=== PATIENT | female | born 1965 | race Caucasian/White ===

== ENCOUNTER 2018-08-02 09:38 | Emergency (ER) | payer OTHER ==
[~2018-08-02] VITALS: Ht 165.1 cm; Wt 81.0 kg
[2018-08-02 10:37] LABS: BASOPHILS # (AUTO) 0.04 x10^3/uL (0-0.1); BASOPHILS % (AUTO) 0 % (0-1); EOSINOPHILS # (AUTO) 0.17 x10^3/uL (0-0.4); EOSINOPHILS % (AUTO) 2 % (1-7); LYMPHOCYTES # (AUTO) 1.57 x10^3/uL (1-3.4); LYMPHOCYTES % (AUTO) 17 % (22-44); MD NO; MEAN PLATELET VOLUME 8.9 fL (7.4-10.4); MONOCYTES # (AUTO) 0.53 x10^3/uL (0.2-0.8); MONOCYTES % (AUTO) 6 % (2-9); NEUTROPHILS # (AUTO) 7.13 x10^3/uL (1.8-6.8); NEUTROPHILS % (AUTO) 76 % (42-75); PLATELET COUNT 370 x10^3/uL (130-400); RED BLOOD COUNT 4.86 x10^6/uL (3.82-5.3); RED CELL DISTRIBUTION WIDTH 14.3 % (9.6-15.2)
[2018-08-02 10:47] LABS: ALANINE AMINOTRANSFERASE 26 U/L (12-78); ALBUMIN 3.7 g/dL (3.4-5.0); ANION GAP 4 mmol/L (5-15); CALCIUM 9.2 mg/dL (8.5-10.1); CHLORIDE 108 mmol/L (98-107); CREATININE 1.01 mg/dL (0.55-1.02)
--- NOTE | 2018-08-02 10:47 | NUR ---
THIS IS A 52 YO FEMALE WHO PRESENTS TO THE ER C/O RIGHT SIDED UPPER TRUNK PAIN X 3 DAYS. PT REPORTS PAIN IS WORSE WITH DEEP BREATHS AND MOVEMENTS AND DESCRIBES IT "SHOOTING" AND DULL WHEN AT REST. PT RATES PAIN AT 4/10 AT THIS TIME. PT CURRENTLY REFUSES OFFER OF PAIN MEDICATION. PT AO X 4. SKIN PWD. RESP EVEN AND EQAUL. PT AWARE WE ARE WAITING FOR LAB/IMAGING RESULTS. FRIEND AT BEDSIDE. CALL LIGHT WITHIN REACH. WILL CONT TO MONITOR PT.
[2018-08-02 10:50] LABS: ALKALINE PHOSPHATASE 114 U/L (45-117); BILIRUBIN,TOTAL 0.6 mg/dL (0.2-1.0)
--- NOTE | 2018-08-02 11:45 | NUR ---
PT WAS SITTING IN CHAIR WITH CLOTHES RN. RN DISCUSSED THAT ERMD HAD ALSO ORDERED A CT SCAN. PT CHANGED BACK INTO GOWN AND NOW RESTING ON GURNEY. NAD NOTED. SKIN PWD. RESP EVEN AND EQAUL. PT PROVIDED WITH SOCKS, DENIES PAIN/NEEDS AT THIS TIME. FRIEND AT BEDSIDE. CALL LIGHT WITHIN REACH. WILL CONT TO MONITOR PT.
[2018-08-02 12:11] VITALS: BP 132/83
== END 2018-08-02 12:50 | disposition home or self-care (01) ==
LOC: ED 11:28
DX: S29.011A Strain of muscle and tendon of front wall of thorax, initial encounter (principal); G89.29 Other chronic pain; X58.XXXA Exposure to other specified factors, initial encounter; Y93.89 Activity, other specified; Y92.89 Other specified places as the place of occurrence of the external cause; Y99.8 Other external cause status
CPT/HCPCS: 36415; 71046; 74176; 76700; 80053; 83690; 85025; 99284

== ENCOUNTER 2018-10-16 21:38 | Inpatient (IN) | payer OTHER ==
[~2018-10-16] VITALS: Ht 165.1 cm; Wt 81.3 kg
--- NOTE | 2018-10-16 22:03 | NUR ---
PT DIAGNOSED WITH HEART FAILURE 4 WEEKS AGO. BEEN HAVING NAUSEA WITH DRY HEAVES FOR PAST 2 DAYS. TODAY NOTICED SWELLING TO BILATERAL LOWER EXTREMITIES. STATES "SHE JUST FEELS CRAPPY." PA AT [facility]. VSS. UPDATED ON POC
[2018-10-16] MEDS ORDERED: ASPIRIN 81 MG TABLET CHEW ONE (22:19)
[2018-10-16] MEDS ORDERED: ONDANSETRON 2MG/ML, 2ML ONE (22:19)
[2018-10-16] MEDS ORDERED: SODIUM CHLORIDE FLUSH 10ML SYR IVF ONE (22:30)
[2018-10-16] MEDS ORDERED: ASPIRIN 81 MG TABLET CHEW PO ONE (22:30)
[2018-10-16] MEDS ORDERED: ONDANSETRON 2MG/ML, 2ML IVPush ONE (22:30)
[2018-10-16 22:51] LABS: BASOPHILS # (AUTO) 0.05 x10^3/uL (0-0.1); BASOPHILS % (AUTO) 1 % (0-1); EOSINOPHILS # (AUTO) 0.05 x10^3/uL (0-0.4); EOSINOPHILS % (AUTO) 0 % (1-7); LYMPHOCYTES # (AUTO) 1.19 x10^3/uL (1-3.4); LYMPHOCYTES % (AUTO) 11 % (22-44); MD NO; MEAN CORPUSCULAR HEMOGLOBIN 28.6 pg (27.0-34.8); MEAN CORPUSCULAR HGB CONC 33.4 g/dL (32.4-35.8); MEAN CORPUSCULAR VOLUME 85.6 fL (80-100); MEAN PLATELET VOLUME 9.1 fL (7.4-10.4); MONOCYTES # (AUTO) 1.14 x10^3/uL (0.2-0.8); MONOCYTES % (AUTO) 10 % (2-9); NEUTROPHILS # (AUTO) 8.92 x10^3/uL (1.8-6.8); NEUTROPHILS % (AUTO) 79 % (42-75); PLATELET COUNT 320 x10^3/uL (130-400); RED BLOOD COUNT 4.28 x10^6/uL (3.82-5.3); RED CELL DISTRIBUTION WIDTH 14.5 % (9.6-15.2)
[2018-10-16 23:01] LABS: ALBUMIN 3.9 g/dL (3.4-5.0); ANION GAP 9 mmol/L (5-15); CALCIUM 9.1 mg/dL (8.5-10.1); CHLORIDE 106 mmol/L (98-107)
[2018-10-16 23:06] LABS: ALANINE AMINOTRANSFERASE 49 U/L (12-78); ALKALINE PHOSPHATASE 154 U/L (45-117); BILIRUBIN,TOTAL 2.1 mg/dL (0.2-1.0); CREATININE 1.38 mg/dL (0.55-1.02); TOTAL PROTEIN 7.7 g/dL (6.4-8.2)
[2018-10-16] MEDS ORDERED: OMNIPAQUE 350 MG/ML, 100ML BOTTLE ONE (23:45)
[2018-10-17] MEDS ORDERED: FUROSEMIDE 40 MG/4 ML ONE (00:27)
[2018-10-17] MEDS ORDERED: FUROSEMIDE 40 MG/4 ML IV ONE (00:30)
[2018-10-17 01:30] VITALS: BP 101/70
[2018-10-17] MEDS ORDERED: morphine SULFATE 10 MG/ML, 1ML IVPush PRN (01:30)
[2018-10-17] MEDS ORDERED: ACETAMINOPHEN 325 MG TABLET PO PRN (01:30)
[2018-10-17] MEDS ORDERED: hydrALAzine 20 MG/ML, 1ML IVPush PRN (01:30)
[2018-10-17] MEDS ORDERED: PROMETHAZINE 25 MG/ML, 1ML IM PRN (01:30)
[2018-10-17] MEDS ORDERED: NITROGLYCERIN 0.4 MG BOTTLE (25 TABS) SL PRN (01:30)
[2018-10-17 02:42] LABS: ALBUMIN 3.8 g/dL (3.4-5.0); ANION GAP 8 mmol/L (5-15); CALCIUM 8.8 mg/dL (8.5-10.1); CHLORIDE 105 mmol/L (98-107)
[2018-10-17 02:46] LABS: ALANINE AMINOTRANSFERASE 50 U/L (12-78); ALKALINE PHOSPHATASE 150 U/L (45-117); CREATININE 1.28 mg/dL (0.55-1.02); TOTAL PROTEIN 7.6 g/dL (6.4-8.2)
[2018-10-17 02:56] LABS: AMPHETAMINE SCREEN, URINE Positive (Negative); BARBITURATE SCREEN, URINE Negative (Negative); BENZODIAZEPINE SCREEN, URINE Negative (Negative); CANNABINOID SCREEN, URINE Negative (Negative); COCAINE SCREEN, URINE Negative (Negative); METHADONE SCREEN, URINE Negative (Negative); OPIATE SCREEN, URINE Negative (Negative)
[2018-10-17] MEDS: HEPARIN 5,000 UNITS/ML, 1ML SQ SCH ×3 (03:12→21:37)
[2018-10-17] MEDS ORDERED: ASPIRIN 325 MG TABLET EC PO SCH (06:00)
[2018-10-17] MEDS ORDERED: ASPIRIN 81 MG TABLET CHEW ONE (06:41)
[2018-10-17 07:00] VITALS: BP 105/77
[2018-10-17] MEDS ORDERED: ASPIRIN 81 MG TABLET CHEW PO ONE (07:00)
[2018-10-17] MEDS: FUROSEMIDE 40 MG/4 ML IV SCH ×2 (07:51→17:31)
[2018-10-17 10:02] LABS: TROPONIN I 0.148 ng/mL (0.000-0.045)
[2018-10-17 13:19] VITALS: BP 109/79
[2018-10-17 17:30] VITALS: BP 109/74
[2018-10-17 20:10] VITALS: BP 109/68
[2018-10-18 02:11] VITALS: BP 101/70
[2018-10-18] MEDS: ASPIRIN 81 MG TABLET EC PO SCH (05:03)
[2018-10-18] MEDS: HEPARIN 5,000 UNITS/ML, 1ML SQ SCH ×3 (05:03→20:51)
[2018-10-18 06:28] LABS: ANION GAP 7 mmol/L (5-15); CALCIUM 8.6 mg/dL (8.5-10.1); CHLORIDE 100 mmol/L (98-107); CHOLESTEROL, TOTAL 129 mg/dL (140-239); CREATININE 0.97 mg/dL (0.55-1.02); TRIGLYCERIDES 100 mg/dL (50-200); VLDL CHOLESTEROL 20 mg/dL (0-25)
[2018-10-18 06:32] LABS: CHOL/HDL RATIO 5.6; HDL CHOL % 18 % (28-40); HDL CHOLESTEROL (DIRECT) 23 mg/dL (40-60); LDL CHOLESTEROL,CALCULATED 86 mg/dL (54-169); LDL/HDL RATIO 3.7 (0.5-3.0); TROPONIN I 0.187 ng/mL (0.000-0.045)
[2018-10-18 08:18] VITALS: BP 115/79
[2018-10-18] MEDS: FUROSEMIDE 40 MG/4 ML IV SCH ×2 (08:47→17:00)
[2018-10-18] MEDS ORDERED: POTASSIUM CHLORIDE 20 MEQ TAB.ER.PRT PO ONE (11:30)
[2018-10-18] MEDS ORDERED: LISI5TAB7 PO (11:35)
[2018-10-18] MEDS ORDERED: CARV3.122 PO (11:35)
[2018-10-18] MEDS ORDERED: POTA20TA6 PO (11:35)
[2018-10-18] MEDS ORDERED: ASPI81TA45 PO (11:35)
[2018-10-18] MEDS ORDERED: FURO40TA6 PO (11:35)
[2018-10-18 13:54] VITALS: BP 130/87
[2018-10-18 20:55] VITALS: BP 105/74
[2018-10-19 02:06] VITALS: BP 117/78
[2018-10-19] MEDS: HEPARIN 5,000 UNITS/ML, 1ML SQ SCH (06:26)
[2018-10-19] MEDS: ASPIRIN 81 MG TABLET EC PO SCH (06:26)
[2018-10-19] MEDS: FUROSEMIDE 40 MG/4 ML IV SCH (06:29)
[2018-10-19 07:15] VITALS: BP 125/86
== END 2018-10-19 12:12 | disposition left against medical advice (07) | DRG 280 ==
LOC: ED 22:05 → EDIP 10-17 00:19 → 5SO 10-17 02:02
PROVIDERS: ADMIT Family Medicine; ATTEND Family Medicine
DX: I21.4 Non-ST elevation (NSTEMI) myocardial infarction (principal); I50.43 Acute on chronic combined systolic (congestive) and diastolic (congestive) heart failure; F17.210 Nicotine dependence, cigarettes, uncomplicated; G89.29 Other chronic pain; I34.0 Nonrheumatic mitral (valve) insufficiency; M32.9 Systemic lupus erythematosus, unspecified; M51.36 Other intervertebral disc degeneration, lumbar region; Z53.21 Procedure and treatment not carried out due to patient leaving prior to being seen by health care provider; Z71.6 Tobacco abuse counseling
CPT/HCPCS: 36415; 71046; 71275; 76700; 80048; 80053; 80061; 80307; 83690; 83735; 83880; 84100; 84443; 84484; 85025; 93005; 93306; 96374; 99285; G0378; J1644; J1940; J2405; Q9967

== ENCOUNTER 2018-10-21 11:51 | Observation (INO) | payer OTHER ==
[~2018-10-21] VITALS: Ht 162.6 cm; Wt 79.8 kg
[~2018-10-21 11:51] MED LIST: ASPI81TA45 PO; CARV3.122 PO; FURO40TA6 PO; LISI5TAB7 PO; POTA20TA6 PO
[2018-10-21 12:49] LABS: INTERNATIONAL NORMALIZED RATIO 0.99 (0.93-1.1); PROTHROMBIN TIME 10.4 Seconds (9.6-11.5)
[2018-10-21 12:51] LABS: ALANINE AMINOTRANSFERASE 30 U/L (12-78); ALBUMIN 3.2 g/dL (3.4-5.0); ANION GAP 7 mmol/L (5-15); CALCIUM 8.9 mg/dL (8.5-10.1); CHLORIDE 103 mmol/L (98-107)
[2018-10-21 12:55] LABS: ALKALINE PHOSPHATASE 121 U/L (45-117); BILIRUBIN,TOTAL 0.7 mg/dL (0.2-1.0); TOTAL PROTEIN 7.4 g/dL (6.4-8.2); TROPONIN I 0.083 ng/mL (0.000-0.045)
--- NOTE | 2018-10-21 12:57 | NUR ---
RECEIVED REPORT FROM LAWANDA SHERIDAN. PT RESTING ON [place]. NADN. LOPEZ.
[2018-10-21 13:08] LABS: BASOPHILS # (AUTO) 0.03 x10^3/uL (0-0.1); BASOPHILS % (AUTO) 0 % (0-1); EOSINOPHILS # (AUTO) 0.16 x10^3/uL (0-0.4); EOSINOPHILS % (AUTO) 2 % (1-7); LYMPHOCYTES # (AUTO) 1.03 x10^3/uL (1-3.4); LYMPHOCYTES % (AUTO) 10 % (22-44); MD NO; MEAN CORPUSCULAR HGB CONC 32.4 g/dL (32.4-35.8); MEAN CORPUSCULAR VOLUME 86.4 fL (80-100); MEAN PLATELET VOLUME 8.3 fL (7.4-10.4); MONOCYTES # (AUTO) 0.75 x10^3/uL (0.2-0.8); MONOCYTES % (AUTO) 7 % (2-9); NEUTROPHILS % (AUTO) 81 % (42-75); PLATELET COUNT 394 x10^3/uL (130-400); RED BLOOD COUNT 4.72 x10^6/uL (3.82-5.3); RED CELL DISTRIBUTION WIDTH 15.1 % (9.6-15.2)
--- NOTE | 2018-10-21 13:16 | NUR ---
PT CHART REVIEWED AND PLACED FOR RECHECK.
--- NOTE | 2018-10-21 13:58 | NUR ---
PT RESTING ON GOLDEN. VSS. AWARE OF POC FOR ADMIT.
[2018-10-21] MEDS ORDERED: NITROGLYCERIN 0.4 MG BOTTLE (25 TABS) SL PRN (14:30)
[2018-10-21] MEDS ORDERED: OXYcodone IR 5MG TABLET PO PRN (14:30)
[2018-10-21] MEDS ORDERED: PROMETHAZINE 25 MG/ML, 1ML IM PRN (14:30)
[2018-10-21] MEDS ORDERED: LABETALOL 5MG/ML, 20ML IVPush PRN (14:30)
[2018-10-21] MEDS ORDERED: ONDANSETRON 2MG/ML, 2ML IVPush PRN (14:30)
[2018-10-21] MEDS ORDERED: ACETAMINOPHEN 325 MG TABLET PO PRN (14:30)
[2018-10-21] MEDS ORDERED: hydrALAzine 20 MG/ML, 1ML IVPush PRN (14:30)
[2018-10-21] MEDS ORDERED: POLYETHYLENE GLYCOL 17 GM PACKET PO PRN (14:30)
[2018-10-21] MEDS ORDERED: DOCUSATE 100 MG CAPSULE PO PRN (14:30)
[2018-10-21] MEDS ORDERED: ONDANSETRON ODT 4 MG PO PRN (14:30)
[2018-10-21] MEDS ORDERED: BISACODYL 10 MG SUPP PR PRN (14:30)
[2018-10-21] MEDS ORDERED: morphine SULFATE 10 MG/ML, 1ML IVPush PRN (14:30)
--- NOTE | 2018-10-21 15:01 | NUR ---
REPORT GIVEN TO MIGUELANGEL DOUGHERTY RN. ALL QUESTIONS ANSWERED. AWAITING PT TRANSPORT.
[2018-10-21 15:12] LABS: FREE T4 (FREE THYROXINE) 1.13 ng/dL (0.76-1.46); THYROID STIMULATING HORMONE 3.95 mIU/L (0.358-3.740)
[2018-10-21 15:53] LABS: HEMOGLOBIN A1C 6.4 % (4.2-6.3)
[2018-10-21 15:57] VITALS: BP 116/84
[2018-10-21 16:06] VITALS: BP 113/73
[2018-10-21] MEDS: HEPARIN 5,000 UNITS/ML, 1ML SQ SCH ×2 (17:18→21:19)
[2018-10-21 18:42] LABS: TROPONIN I 0.078 ng/mL (0.000-0.045)
[2018-10-21 19:19] VITALS: BP 119/75
[2018-10-21] MEDS: CARVEDILOL 3.125 MG TABLET PO SCH (21:19)
[2018-10-22 01:32] VITALS: BP 117/81
[2018-10-22 01:50] LABS: TROPONIN I 0.073 ng/mL (0.000-0.045)
[2018-10-22 05:10] LABS: BASOPHILS # (AUTO) 0.04 x10^3/uL (0-0.1); BASOPHILS % (AUTO) 1 % (0-1); EOSINOPHILS # (AUTO) 0.27 x10^3/uL (0-0.4); EOSINOPHILS % (AUTO) 3 % (1-7); LYMPHOCYTES % (AUTO) 23 % (22-44); MD NO; MEAN CORPUSCULAR HEMOGLOBIN 28.3 pg (27.0-34.8); MEAN CORPUSCULAR HGB CONC 32.8 g/dL (32.4-35.8); MEAN CORPUSCULAR VOLUME 86.5 fL (80-100); MEAN PLATELET VOLUME 8.7 fL (7.4-10.4); MONOCYTES # (AUTO) 0.76 x10^3/uL (0.2-0.8); MONOCYTES % (AUTO) 10 % (2-9); NEUTROPHILS # (AUTO) 5.11 x10^3/uL (1.8-6.8); NEUTROPHILS % (AUTO) 64 % (42-75); PLATELET COUNT 332 x10^3/uL (130-400); RED CELL DISTRIBUTION WIDTH 15.5 % (9.6-15.2)
[2018-10-22 05:12] LABS: CHLORIDE 107 mmol/L (98-107)
[2018-10-22 05:22] LABS: ALANINE AMINOTRANSFERASE 22 U/L (12-78); ALBUMIN 2.9 g/dL (3.4-5.0); ALKALINE PHOSPHATASE 102 U/L (45-117); ANION GAP 5 mmol/L (5-15); BILIRUBIN,TOTAL 0.7 mg/dL (0.2-1.0); CALCIUM 8.7 mg/dL (8.5-10.1); CHOL/HDL RATIO 4.2; CHOLESTEROL, TOTAL 129 mg/dL (140-239); CREATININE 0.81 mg/dL (0.55-1.02); HDL CHOL % 24 % (28-40); HDL CHOLESTEROL (DIRECT) 31 mg/dL (40-60); LDL CHOLESTEROL,CALCULATED 81 mg/dL (54-169); TOTAL PROTEIN 6.4 g/dL (6.4-8.2); TRIGLYCERIDES 86 mg/dL (50-200); VLDL CHOLESTEROL 17 mg/dL (0-25)
[2018-10-22 05:23] LABS: LDL/HDL RATIO 2.6 (0.5-3.0)
[2018-10-22] MEDS ORDERED: ASPIRIN 325 MG TABLET EC PO SCH (06:00)
[2018-10-22 06:44] VITALS: BP 119/85
[2018-10-22] MEDS: CARVEDILOL 3.125 MG TABLET PO SCH (07:50)
[2018-10-22] MEDS: HEPARIN 5,000 UNITS/ML, 1ML SQ SCH (07:51)
[2018-10-22] MEDS ORDERED: REGADENOSON 0.4 MG/5 ML SYRINGE ONE (08:45)
[2018-10-22] MEDS ORDERED: LISINOPRIL 5 MG TABLET PO SCH (09:00)
[2018-10-22] MEDS ORDERED: FUROSEMIDE 40 MG TABLET PO SCH (09:00)
[2018-10-22] MEDS ORDERED: POTASSIUM CHLORIDE 20 MEQ TAB.ER.PRT PO SCH (09:00)
[2018-10-22] MEDS ORDERED: SPIR25TA5 PO (12:00)
== END 2018-10-22 14:12 | disposition home or self-care (01) ==
LOC: ED 12:41 → EDIP 13:18 → INTOOBSV 13:18 → 5SO 15:13 → DCLOUNGE 10-22 14:05
PROVIDERS: ADMIT Internal Medicine; ATTEND Internal Medicine
DX: I11.0 Hypertensive heart disease with heart failure (principal); I50.43 Acute on chronic combined systolic (congestive) and diastolic (congestive) heart failure; R07.89 Other chest pain; I44.7 Left bundle-branch block, unspecified; I49.1 Atrial premature depolarization; J96.10 Chronic respiratory failure, unspecified whether with hypoxia or hypercapnia; E44.0 Moderate protein-calorie malnutrition; F17.210 Nicotine dependence, cigarettes, uncomplicated; M32.9 Systemic lupus erythematosus, unspecified; M54.9 Dorsalgia, unspecified; G89.29 Other chronic pain; F15.10 Other stimulant abuse, uncomplicated; Z68.30 Body mass index [BMI] 30.0-30.9, adult; Z91.19 Patient's noncompliance with other medical treatment and regimen; Z99.81 Dependence on supplemental oxygen
CPT/HCPCS: 36415; 71045; 78452; 80053; 80061; 83036; 83735; 83880; 84439; 84443; 84484; 85025; 85610; 93005; 93017; 96372; 99291; A9502; C9898; G0378; J1644; J2785

== ENCOUNTER → 2019-05-01 | Outpatient (CLI) | payer OTHER ==
[~2019-05-01] MED LIST changes: +SPIR25TA5 PO
== END | disposition home or self-care (01) ==
LOC: CFH 11:52
PROVIDERS: ATTEND Internal Medicine Cardiovascular Disease
DX: I50.43 Acute on chronic combined systolic (congestive) and diastolic (congestive) heart failure (principal); I42.9 Cardiomyopathy, unspecified; I44.7 Left bundle-branch block, unspecified; J44.1 Chronic obstructive pulmonary disease with (acute) exacerbation; I50.9 Heart failure, unspecified; Z72.0 Tobacco use; Z85.828 Personal history of other malignant neoplasm of skin; Z83.3 Family history of diabetes mellitus; Z82.49 Family history of ischemic heart disease and other diseases of the circulatory system; Z80.1 Family history of malignant neoplasm of trachea, bronchus and lung
CPT/HCPCS: 71046

== ENCOUNTER 2019-05-15 10:22 | Inpatient (IN) | payer OTHER ==
[~2019-05-15] VITALS: Ht 165.1 cm; Wt 91.7 kg
--- NOTE | 2019-05-15 11:20 | NUR ---
PT SITTING IN POSITION OF COMFORT AT EDGE OF [facility], LABORED BREATHING
[2019-05-15 11:23] LABS: BASOPHILS # (AUTO) 0.01 x10^3/uL (0-0.1); BASOPHILS % (AUTO) 0 % (0-1); EOSINOPHILS # (AUTO) 0.11 x10^3/uL (0-0.4); EOSINOPHILS % (AUTO) 1 % (1-7); LYMPHOCYTES # (AUTO) 0.34 x10^3/uL (1-3.4); LYMPHOCYTES % (AUTO) 4 % (22-44); MD NO; MEAN CORPUSCULAR HEMOGLOBIN 28.6 pg (27.0-34.8); MEAN CORPUSCULAR HGB CONC 31.9 g/dL (32.4-35.8); MEAN CORPUSCULAR VOLUME 89.6 fL (80-100); MEAN PLATELET VOLUME 9.3 fL (7.4-10.4); MONOCYTES # (AUTO) 0.44 x10^3/uL (0.2-0.8); MONOCYTES % (AUTO) 5 % (2-9); NEUTROPHILS # (AUTO) 8.41 x10^3/uL (1.8-6.8); NEUTROPHILS % (AUTO) 91 % (42-75); PLATELET COUNT 352 x10^3/uL (130-400); RED BLOOD COUNT 4.62 x10^6/uL (3.82-5.3); RED CELL DISTRIBUTION WIDTH 15.6 % (9.6-15.2)
[2019-05-15] MEDS ORDERED: FUROSEMIDE 40 MG/4 ML IV ONE (11:30)
[2019-05-15] MEDS ORDERED: ALBUTEROL/IPRATROPIUM 2.5MG/0.5MG, 3 ML ONE (11:30)
[2019-05-15] MEDS ORDERED: SODIUM CHLORIDE FLUSH 10ML SYR IVF ONE (11:30)
[2019-05-15] MEDS ORDERED: ALBUTEROL/IPRATROPIUM 2.5MG/0.5MG, 3 ML NPPB ONE (11:30)
[2019-05-15 11:35] LABS: ALBUMIN 3.6 g/dL (3.4-5.0); ANION GAP 8 mmol/L (5-15); CALCIUM 8.7 mg/dL (8.5-10.1); CHLORIDE 104 mmol/L (98-107); CREATININE 1.29 mg/dL (0.55-1.02)
[2019-05-15] MEDS ORDERED: FUROSEMIDE 40 MG/4 ML ONE (11:54)
[2019-05-15 12:08] LABS: ALANINE AMINOTRANSFERASE 37 U/L (12-78); ALBUMIN 3.3 g/dL (3.4-5.0); ANION GAP 9 mmol/L (5-15); CALCIUM 8.3 mg/dL (8.5-10.1); CHLORIDE 104 mmol/L (98-107); CREATININE 1.29 mg/dL (0.55-1.02)
[2019-05-15 12:13] LABS: ALKALINE PHOSPHATASE 136 U/L (45-117); BILIRUBIN,TOTAL 1.8 mg/dL (0.2-1.0); TOTAL PROTEIN 7.5 g/dL (6.4-8.2)
[2019-05-15] MEDS ORDERED: ASPIRIN 81 MG TABLET CHEW PO ONE (12:30)
--- NOTE | 2019-05-15 12:31 | NUR ---
WOB IMPROVED CONTINUE TO MONITOR
[2019-05-15] MEDS ORDERED: ASPIRIN 81 MG TABLET CHEW ONE (12:46)
[2019-05-15] MEDS ORDERED: NITROGLYCERIN 0.4 MG BOTTLE (25 TABS) SL PRN (13:00)
[2019-05-15] MEDS ORDERED: NITROGLYCERIN 0.4 MG/SPRAY SL PRN (13:00)
[2019-05-15] MEDS ORDERED: hydrALAzine 20 MG/ML, 1ML IVPush PRN (13:00)
[2019-05-15] MEDS ORDERED: LABETALOL 5MG/ML, 20ML IVPush PRN (13:00)
[2019-05-15] MEDS ORDERED: ONDANSETRON ODT 4 MG PO PRN (13:00)
[2019-05-15] MEDS ORDERED: ONDANSETRON 2MG/ML, 2ML IVPush PRN (13:00)
[2019-05-15] MEDS ORDERED: morphine SULFATE 10 MG/ML, 1ML IVPush PRN (13:00)
[2019-05-15] MEDS ORDERED: PROMETHAZINE 25 MG/ML, 1ML IM PRN (13:00)
[2019-05-15] MEDS ORDERED: HYDROcodone/APAP 5/325 TABLET PO PRN (13:00)
--- NOTE | 2019-05-15 13:08 | NUR ---
UP TO COMMODE X2 WITH APPROXIMATELY 400 ML DIURESED
[2019-05-15 13:12] LABS: RAPID INFLUENZA A Negative (Negative); RAPID INFLUENZA B Negative (Negative)
--- NOTE | 2019-05-15 13:29 | NUR ---
TO CT VIA [facility]
[2019-05-15] MEDS: FUROSEMIDE 40 MG TABLET PO SCH ×2 (13:30→17:42)
--- NOTE | 2019-05-15 14:04 | NUR ---
REPORT TO BUSHRA KIM PT TO BE TRANSPORTED TO FLOOR.
[2019-05-15] MEDS: AMPICILLIN/SULBACTAM 3 GM in SODIUM CHLORIDE 0.9% 100 ML IV SCH ×2 (14:30→22:40)
[2019-05-15] MEDS: AZITHROMYCIN 500 MG in SODIUM CHLORIDE 0.9% 250 ML IV SCH (14:38)
[2019-05-15] MEDS ORDERED: OMNIPAQUE 350 MG/ML, 100ML BOTTLE ONE (14:48)
--- NOTE | 2019-05-15 14:52 | NUR ---
continues to await transportation to floor. WOB increasing. results of cta shows pna with antibiotics ordered by hospitalist and started. allegra recontacted and made aware.
[2019-05-15] MEDS ORDERED: HEPARIN 5,000 UNITS/ML, 1ML IV ONE (15:00)
[2019-05-15] MEDS ORDERED: HEPARIN 5,000 UNITS/ML, 1ML IV PRN (15:00)
[2019-05-15] MEDS: HEPARIN 25,000 UNITS/500ML PMX 500 ML IV PRN (15:28)
[2019-05-15 15:57] VITALS: BP 94/70
[2019-05-15] MEDS ORDERED: ALBUTEROL SULFATE 2.5 MG/3 ML NPPB PRN (16:00)
[2019-05-15] MEDS ORDERED: LORazepam 2 MG/ML, 1ML IVPush PRN (17:30)
[2019-05-15] MEDS ORDERED: LORazepam 2 MG/ML, 1ML IV ONE (18:30)
[2019-05-15] MEDS ORDERED: morphine SULFATE 10 MG/ML, 1ML IVPush ONE (19:00)
[2019-05-15 20:22] VITALS: BP 117/75
[2019-05-15] MEDS: NICOTINE 14MG/24 HR PATCH.TD24 TD SCH (21:25)
[2019-05-15] MEDS: CARVEDILOL 3.125 MG TABLET PO SCH (22:40)
[2019-05-15] MEDS: ACETAMINOPHEN 325 MG TABLET PO PRN (22:58)
[2019-05-16] MEDS ORDERED: LORazepam 2 MG/ML, 1ML IVPush ONE
[2019-05-16] MEDS ORDERED: NALOXONE 0.4 MG/ML, 1ML ONE (00:21)
[2019-05-16] MEDS ORDERED: FUROSEMIDE 20 MG/2 ML ONE (00:24)
[2019-05-16] MEDS ORDERED: NALOXONE 0.4 MG/ML, 1ML IVPush PRN (00:30)
[2019-05-16] MEDS ORDERED: FLUMAZENIL 0.1 MG/1 ML, 5ML IVPush ONE (00:30)
[2019-05-16] MEDS ORDERED: FUROSEMIDE 20 MG/2 ML IV ONE (00:30)
[2019-05-16 02:05] VITALS: BP 90/48
[2019-05-16] MEDS ORDERED: FUROSEMIDE 40 MG/4 ML IV ONE (02:30)
[2019-05-16] MEDS ORDERED: NOREPINEPHRINE 4 MG in SODIUM CHLORIDE 0.9% 246 ML IV PRN ×2 (03:00→04:24)
[2019-05-16] MEDS ORDERED: DEXTROSE 50%, 50ML SYRINGE IVPush PRN (04:30)
[2019-05-16] MEDS ORDERED: DEXTROSE 4 GM TAB.CHEW PO PRN (04:30)
[2019-05-16] MEDS ORDERED: BISACODYL 10 MG SUPP PR PRN (04:30)
[2019-05-16] MEDS ORDERED: FENTANYL PF 100 MCG/2ML IVPush PRN (04:30)
[2019-05-16] MEDS ORDERED: LIDOCAINE-MPF 1%, 2ML ENDO PRN (04:30)
[2019-05-16] MEDS ORDERED: PHARMACY MAY ADJ FOR RENAL FX MC SCH (04:30)
[2019-05-16] MEDS ORDERED: GLUCAGON 1 MG IM PRN (04:30)
[2019-05-16] MEDS ORDERED: LACTULOSE 20 GM/30 ML UDC NG PRN (04:30)
[2019-05-16] MEDS ORDERED: SENNA 176 MG/5 ML ORAL SOL NG PRN (04:30)
[2019-05-16] MEDS ORDERED: SENNA/DOCUSATE TABLET NG PRN (04:30)
[2019-05-16 04:44] LABS: BASOPHILS # (AUTO) 0.04 x10^3/uL (0-0.1); BASOPHILS % (AUTO) 1 % (0-1); EOSINOPHILS % (AUTO) 0 % (1-7); LYMPHOCYTES # (AUTO) 0.63 x10^3/uL (1-3.4); LYMPHOCYTES % (AUTO) 8 % (22-44); MD NO; MEAN CORPUSCULAR HEMOGLOBIN 28.5 pg (27.0-34.8); MEAN CORPUSCULAR HGB CONC 31.8 g/dL (32.4-35.8); MEAN CORPUSCULAR VOLUME 89.6 fL (80-100); MONOCYTES # (AUTO) 0.73 x10^3/uL (0.2-0.8); MONOCYTES % (AUTO) 10 % (2-9); NEUTROPHILS # (AUTO) 6.19 x10^3/uL (1.8-6.8); NEUTROPHILS % (AUTO) 82 % (42-75); PLATELET COUNT 284 x10^3/uL (130-400); RED BLOOD COUNT 4.05 x10^6/uL (3.82-5.3); RED CELL DISTRIBUTION WIDTH 15.5 % (9.6-15.2)
[2019-05-16 04:58] LABS: ALANINE AMINOTRANSFERASE 68 U/L (12-78); ANION GAP 10 mmol/L (5-15); CALCIUM 7.5 mg/dL (8.5-10.1); CHLORIDE 101 mmol/L (98-107)
[2019-05-16 05:11] LABS: ALKALINE PHOSPHATASE 112 U/L (45-117); BILIRUBIN,TOTAL 1.4 mg/dL (0.2-1.0); CHOL/HDL RATIO 4.2; CHOLESTEROL, TOTAL 113 mg/dL (140-239); CREATININE 1.45 mg/dL (0.55-1.02); HDL CHOL % 24 % (28-40); HDL CHOLESTEROL (DIRECT) 27 mg/dL (40-60); LDL CHOLESTEROL,CALCULATED 69 mg/dL (54-169); LDL/HDL RATIO 2.6 (0.5-3.0); TOTAL PROTEIN 6.8 g/dL (6.4-8.2); TRIGLYCERIDES 87 mg/dL (50-200); VLDL CHOLESTEROL 17 mg/dL (0-25)
[2019-05-16 05:12] LABS: TRIGLYCERIDES 88 mg/dL (50-200)
[2019-05-16] MEDS: ASPIRIN 81 MG TABLET EC PO SCH (06:00)
[2019-05-16] MEDS: ALBUTEROL/IPRATROPIUM 2.5MG/0.5MG, 3 ML INLINE SCH ×5 (06:14→23:13)
[2019-05-16] MEDS: NOREPINEPHRINE 8 MG in SODIUM CHLORIDE 0.9% 242 ML IV PRN ×4 (06:52→21:57)
[2019-05-16] MEDS ORDERED: ALBUTEROL/IPRATROPIUM 2.5MG/0.5MG, 3 ML INLINE SCH (07:00)
[2019-05-16] MEDS ORDERED: PROPOFOL 100 ML IV ONE (07:00)
[2019-05-16] MEDS ORDERED: MIDAZOLAM 1 MG/ML, 5ML ONE (08:00)
[2019-05-16] MEDS ORDERED: SUCCINYLCHOLINE 20 MG/ML, 10ML ONE (08:00)
[2019-05-16] MEDS ORDERED: EPINEPHRINE SYRINGE 0.1 MG/ML, 10ML ONE (08:00)
[2019-05-16] MEDS: FUROSEMIDE 40 MG/4 ML IV SCH ×2 (08:30→16:20)
[2019-05-16] MEDS ORDERED: DOBUTAMINE 250 MG in SODIUM CHLORIDE 0.9% 230 ML IV PRN (08:30)
[2019-05-16 08:52] LABS: AMPHETAMINE SCREEN, URINE Positive (Negative); BARBITURATE SCREEN, URINE Negative (Negative); BENZODIAZEPINE SCREEN, URINE Positive (Negative); CANNABINOID SCREEN, URINE Negative (Negative); COCAINE SCREEN, URINE Negative (Negative); METHADONE SCREEN, URINE Negative (Negative); OPIATE SCREEN, URINE Positive (Negative)
[2019-05-16] MEDS: PROPOFOL 100 ML IV PRN ×2 (08:57→20:26)
[2019-05-16] MEDS: AMPICILLIN/SULBACTAM 3 GM in SODIUM CHLORIDE 0.9% 100 ML IV SCH ×3 (09:00→23:41)
[2019-05-16] MEDS: CARVEDILOL 3.125 MG TABLET PO SCH ×2 (11:25→19:39)
[2019-05-16] MEDS: SODIUM CHLORIDE FLUSH 10ML SYR IVF SCH ×2 (11:25→19:39)
[2019-05-16] MEDS ORDERED: MAGNESIUM SULFATE PMX 2GM/50ML 50 ML ONE (12:54)
[2019-05-16] MEDS ORDERED: CODE BLUE RESPONSE XX ONE (12:55)
[2019-05-16] MEDS ORDERED: FILTER 0.22 MICRON ONE (13:00)
[2019-05-16] MEDS ORDERED: DEXTROSE 5%, 500ML ONE (13:00)
[2019-05-16] MEDS ORDERED: AMIODARONE 50 MG/ML, 3ML ONE (13:00)
[2019-05-16] MEDS ORDERED: AMIODARONE 900 MG in DEXTROSE 5% 482 ML IV PRN ×2 (13:00→13:30)
[2019-05-16 13:22] LABS: BASOPHILS # (AUTO) 0.01 x10^3/uL (0-0.1); BASOPHILS % (AUTO) 0 % (0-1); EOSINOPHILS # (AUTO) 0.01 x10^3/uL (0-0.4); EOSINOPHILS % (AUTO) 0 % (1-7); LYMPHOCYTES # (AUTO) 0.74 x10^3/uL (1-3.4); LYMPHOCYTES % (AUTO) 13 % (22-44); MD NO; MEAN CORPUSCULAR HGB CONC 33.5 g/dL (32.4-35.8); MEAN CORPUSCULAR VOLUME 86.6 fL (80-100); MEAN PLATELET VOLUME 8.7 fL (7.4-10.4); MONOCYTES # (AUTO) 0.22 x10^3/uL (0.2-0.8); MONOCYTES % (AUTO) 4 % (2-9); NEUTROPHILS # (AUTO) 4.53 x10^3/uL (1.8-6.8); NEUTROPHILS % (AUTO) 82 % (42-75); PLATELET COUNT 271 x10^3/uL (130-400); RED BLOOD COUNT 4.21 x10^6/uL (3.82-5.3); RED CELL DISTRIBUTION WIDTH 15.7 % (9.6-15.2)
[2019-05-16] MEDS ORDERED: AMIODARONE 150 MG in DEXTROSE 5% 100 ML IV ONE (13:30)
[2019-05-16 13:32] LABS: ALANINE AMINOTRANSFERASE 84 U/L (12-78); ALBUMIN 2.8 g/dL (3.4-5.0); ANION GAP 9 mmol/L (5-15); CALCIUM 7.7 mg/dL (8.5-10.1); CHLORIDE 100 mmol/L (98-107)
[2019-05-16 13:37] LABS: ALKALINE PHOSPHATASE 111 U/L (45-117); BILIRUBIN,TOTAL 1.3 mg/dL (0.2-1.0); TOTAL PROTEIN 6.6 g/dL (6.4-8.2)
[2019-05-16] MEDS: VASOPRESSIN 100 UNIT in SODIUM CHLORIDE 0.9% 495 ML IV PRN (14:18)
[2019-05-16] MEDS: AZITHROMYCIN 500 MG in SODIUM CHLORIDE 0.9% 250 ML IV SCH (14:37)
[2019-05-16] MEDS: NICOTINE 14MG/24 HR PATCH.TD24 TD SCH (14:50)
[2019-05-16] MEDS ORDERED: POTASSIUM CHLORIDE 40 MEQ in SODIUM CHLORIDE 0.9% 100 ML IV ONE (15:00)
[2019-05-16] MEDS ORDERED: SODIUM CHLORIDE 0.9%, 500ML IVBOLUS PRN (16:00)
[2019-05-16] MEDS: ACETAMINOPHEN 325 MG TABLET PO PRN (16:34)
[2019-05-16] MEDS: DOBUTAMINE/D5W PMX 250 ML IV PRN ×3 (18:06→23:41)
[2019-05-16] MEDS: PHENYLEPHRINE 20 MG in SODIUM CHLORIDE 0.9% 248 ML IV SCH ×2 (19:22→21:58)
[2019-05-16] MEDS: HEPARIN 25,000 UNITS/500ML PMX 500 ML IV PRN (20:28)
[2019-05-17 01:30] VITALS: BP 85/50
[2019-05-17] MEDS: DOBUTAMINE/D5W PMX 250 ML IV PRN ×6 (02:16→17:04)
[2019-05-17] MEDS: PROPOFOL 100 ML IV PRN ×2 (02:17→19:31)
[2019-05-17] MEDS: PHENYLEPHRINE 80 MG in SODIUM CHLORIDE 0.9% 242 ML IV SCH ×3 (02:18→19:40)
[2019-05-17 02:42] LABS: MICROSCOPIC INDICATED
[2019-05-17 02:43] LABS: CULTURE INDICATED? YES
[2019-05-17 02:51] LABS: CREATININE,URINE RANDOM 67.6 mg/dL
[2019-05-17] MEDS: ALBUTEROL/IPRATROPIUM 2.5MG/0.5MG, 3 ML INLINE SCH ×6 (03:00→22:50)
[2019-05-17] MEDS: NOREPINEPHRINE 8 MG in SODIUM CHLORIDE 0.9% 242 ML IV PRN ×3 (04:08→19:41)
[2019-05-17 04:32] LABS: BASOPHILS # (AUTO) 0.01 x10^3/uL (0-0.1); BASOPHILS % (AUTO) 0 % (0-1); EOSINOPHILS % (AUTO) 0 % (1-7); LYMPHOCYTES # (AUTO) 0.28 x10^3/uL (1-3.4); LYMPHOCYTES % (AUTO) 3 % (22-44); MD NO; MEAN CORPUSCULAR HGB CONC 31.7 g/dL (32.4-35.8); MEAN CORPUSCULAR VOLUME 88.1 fL (80-100); MEAN PLATELET VOLUME 9.2 fL (7.4-10.4); MONOCYTES # (AUTO) 0.22 x10^3/uL (0.2-0.8); MONOCYTES % (AUTO) 2 % (2-9); NEUTROPHILS # (AUTO) 8.63 x10^3/uL (1.8-6.8); NEUTROPHILS % (AUTO) 94 % (42-75); PLATELET COUNT 238 x10^3/uL (130-400); RED CELL DISTRIBUTION WIDTH 15.7 % (9.6-15.2)
[2019-05-17 04:35] LABS: ANION GAP 11 mmol/L (5-15); CALCIUM 6.8 mg/dL (8.5-10.1); CHLORIDE 103 mmol/L (98-107); CREATININE 2.04 mg/dL (0.55-1.02)
[2019-05-17] MEDS: ASPIRIN 81 MG TABLET EC PO SCH (04:56)
[2019-05-17] MEDS ORDERED: FILTER 0.22 MICRON IV PRN (06:30)
[2019-05-17] MEDS ORDERED: CALCIUM CHLORIDE 13.6 MEQ in SODIUM CHLORIDE 0.9% 100 ML IV ONE ×2 (07:30→16:30)
[2019-05-17] MEDS: FUROSEMIDE 40 MG/4 ML IV SCH ×2 (07:30→17:00)
[2019-05-17] MEDS ORDERED: EPINEPHRINE 1 MG/ML, 1ML ONE (08:00)
[2019-05-17] MEDS ORDERED: SODIUM BICARB 8.4%, 50ML SYRINGE ONE (08:00)
[2019-05-17] MEDS: FAMOTIDINE 20 MG/2 ML IVPush SCH (08:42)
[2019-05-17] MEDS: AMPICILLIN/SULBACTAM 3 GM in SODIUM CHLORIDE 0.9% 100 ML IV SCH ×2 (08:42→19:50)
[2019-05-17] MEDS: CARVEDILOL 3.125 MG TABLET PO SCH ×2 (08:42→21:00)
[2019-05-17] MEDS: SODIUM CHLORIDE FLUSH 10ML SYR IVF SCH ×2 (08:43→19:50)
[2019-05-17] MEDS: AMIODARONE 200 MG TABLET PO SCH ×2 (10:14→21:19)
[2019-05-17] MEDS: NICOTINE 14MG/24 HR PATCH.TD24 TD SCH (13:00)
[2019-05-17] MEDS: AZITHROMYCIN 500 MG in SODIUM CHLORIDE 0.9% 250 ML IV SCH (13:51)
[2019-05-17] MEDS ORDERED: ALBUMIN HUMAN 25% 100 ML IV ONE (14:30)
[2019-05-17] MEDS ORDERED: SODIUM CHLORIDE 0.9% 1,000ML IVBOLUS ONE (14:30)
[2019-05-17 15:55] LABS: ANION GAP 14 mmol/L (5-15); CHLORIDE 111 mmol/L (98-107)
[2019-05-17 16:01] LABS: ALANINE AMINOTRANSFERASE 667 U/L (12-78); ALKALINE PHOSPHATASE 129 U/L (45-117); BILIRUBIN,TOTAL 0.7 mg/dL (0.2-1.0); CREATININE 1.85 mg/dL (0.55-1.02); TOTAL PROTEIN 4.3 g/dL (6.4-8.2)
[2019-05-17 16:02] LABS: BASOPHILS % (AUTO) 0 % (0-1); EOSINOPHILS % (AUTO) 0 % (1-7); LYMPHOCYTES # (AUTO) 0.67 x10^3/uL (1-3.4); LYMPHOCYTES % (AUTO) 10 % (22-44); MD NO; MEAN CORPUSCULAR HEMOGLOBIN 28.2 pg (27.0-34.8); MEAN CORPUSCULAR HGB CONC 32.1 g/dL (32.4-35.8); MEAN CORPUSCULAR VOLUME 87.8 fL (80-100); MEAN PLATELET VOLUME 9.5 fL (7.4-10.4); MONOCYTES # (AUTO) 0.24 x10^3/uL (0.2-0.8); MONOCYTES % (AUTO) 4 % (2-9); NEUTROPHILS # (AUTO) 5.93 x10^3/uL (1.8-6.8); NEUTROPHILS % (AUTO) 87 % (42-75); PLATELET COUNT 191 x10^3/uL (130-400); RED BLOOD COUNT 3.39 x10^6/uL (3.82-5.3); RED CELL DISTRIBUTION WIDTH 15.4 % (9.6-15.2)
[2019-05-17] MEDS ORDERED: POTASSIUM CHLORIDE PMX 100 ML IV ONE (16:30)
[2019-05-17] MEDS: SODIUM BICARBONATE 8.4% 150 MEQ in DEXTROSE 5% 1,000 ML IV SCH ×2 (16:45→23:10)
[2019-05-17] MEDS: DOBUTAMINE 500 MG in DEXTROSE 5% 210 ML IV SCH (19:42)
[2019-05-17] MEDS: VASOPRESSIN 100 UNIT in SODIUM CHLORIDE 0.9% 495 ML IV PRN (23:10)
[2019-05-18] MEDS: HEPARIN 25,000 UNITS/500ML PMX 500 ML IV PRN (00:26)
[2019-05-18] MEDS: DOBUTAMINE 500 MG in DEXTROSE 5% 210 ML IV SCH ×4 (00:47→17:45)
[2019-05-18] MEDS: ALBUTEROL/IPRATROPIUM 2.5MG/0.5MG, 3 ML INLINE SCH ×6 (03:00→22:20)
[2019-05-18 04:24] LABS: BASOPHILS % (AUTO) 0 % (0-1); EOSINOPHILS % (AUTO) 0 % (1-7); LYMPHOCYTES # (AUTO) 0.71 x10^3/uL (1-3.4); LYMPHOCYTES % (AUTO) 8 % (22-44); MD NO; MEAN CORPUSCULAR HEMOGLOBIN 29.1 pg (27.0-34.8); MEAN CORPUSCULAR HGB CONC 32.4 g/dL (32.4-35.8); MEAN CORPUSCULAR VOLUME 89.8 fL (80-100); MEAN PLATELET VOLUME 9.6 fL (7.4-10.4); MONOCYTES # (AUTO) 0.34 x10^3/uL (0.2-0.8); MONOCYTES % (AUTO) 4 % (2-9); NEUTROPHILS % (AUTO) 88 % (42-75); PLATELET COUNT 213 x10^3/uL (130-400); RED BLOOD COUNT 3.61 x10^6/uL (3.82-5.3); RED CELL DISTRIBUTION WIDTH 15.6 % (9.6-15.2)
[2019-05-18 05:06] LABS: ANION GAP 9 mmol/L (5-15); CHLORIDE 99 mmol/L (98-107); CREATININE 2.32 mg/dL (0.55-1.02)
[2019-05-18 05:08] LABS: CALCIUM 6.7 mg/dL (8.5-10.1)
[2019-05-18] MEDS: ASPIRIN 81 MG TABLET EC PO SCH (05:58)
[2019-05-18] MEDS: SODIUM BICARBONATE 8.4% 150 MEQ in DEXTROSE 5% 1,000 ML IV SCH (05:59)
[2019-05-18] MEDS ORDERED: CALCIUM CHLORIDE 13.6 MEQ in SODIUM CHLORIDE 0.9% 100 ML IV ONE (07:00)
[2019-05-18] MEDS: FUROSEMIDE 40 MG/4 ML IV SCH ×2 (07:30→16:50)
[2019-05-18] MEDS: AMIODARONE 200 MG TABLET PO SCH ×2 (08:41→21:30)
[2019-05-18] MEDS: FAMOTIDINE 20 MG/2 ML IVPush SCH (08:41)
[2019-05-18] MEDS: CARVEDILOL 3.125 MG TABLET PO SCH ×2 (08:52→21:30)
[2019-05-18] MEDS: AMPICILLIN/SULBACTAM 3 GM in SODIUM CHLORIDE 0.9% 100 ML IV SCH ×2 (08:52→19:56)
[2019-05-18] MEDS: SODIUM CHLORIDE FLUSH 10ML SYR IVF SCH ×2 (08:52→21:30)
[2019-05-18] MEDS: PROPOFOL 100 ML IV PRN ×3 (09:08→19:57)
[2019-05-18 11:07] LABS: ALBUMIN 2.2 g/dL (3.4-5.0); BILIRUBIN, DIRECT 0.3 mg/dL (0.1-0.2); BILIRUBIN,INDIRECT 0.5 mg/dL (0.0-2.0); BILIRUBIN,TOTAL 0.8 mg/dL (0.2-1.0); TOTAL PROTEIN 4.9 g/dL (6.4-8.2)
[2019-05-18] MEDS: NICOTINE 14MG/24 HR PATCH.TD24 TD SCH (12:21)
[2019-05-18] MEDS: NOREPINEPHRINE 8 MG in SODIUM CHLORIDE 0.9% 242 ML IV PRN (14:29)
[2019-05-19] MEDS: ALBUTEROL/IPRATROPIUM 2.5MG/0.5MG, 3 ML INLINE SCH ×6 (02:15→23:30)
[2019-05-19] MEDS: PROPOFOL 100 ML IV PRN ×4 (03:25→21:02)
[2019-05-19] MEDS: DOBUTAMINE 500 MG in DEXTROSE 5% 210 ML IV SCH ×4 (03:57→18:29)
[2019-05-19] MEDS: NOREPINEPHRINE 8 MG in SODIUM CHLORIDE 0.9% 242 ML IV PRN ×3 (03:58→22:50)
[2019-05-19 04:35] LABS: MEAN CORPUSCULAR HGB CONC 32.6 g/dL (32.4-35.8); MEAN CORPUSCULAR VOLUME 88.8 fL (80-100); MEAN PLATELET VOLUME 10.2 fL (7.4-10.4); PLATELET COUNT 194 x10^3/uL (130-400); RED BLOOD COUNT 3.52 x10^6/uL (3.82-5.3); RED CELL DISTRIBUTION WIDTH 15.8 % (9.6-15.2)
[2019-05-19 04:48] LABS: ALANINE AMINOTRANSFERASE 696 U/L (12-78); ALBUMIN 2.2 g/dL (3.4-5.0); ANION GAP 8 mmol/L (5-15); BILIRUBIN, DIRECT 0.5 mg/dL (0.1-0.2); CALCIUM 6.4 mg/dL (8.5-10.1); CHLORIDE 92 mmol/L (98-107); CREATININE 2.83 mg/dL (0.55-1.02); TRIGLYCERIDES 274 mg/dL (50-200)
[2019-05-19 04:50] LABS: ALKALINE PHOSPHATASE 140 U/L (45-117); BILIRUBIN,INDIRECT 0.4 mg/dL (0.0-2.0); BILIRUBIN,TOTAL 0.9 mg/dL (0.2-1.0)
[2019-05-19 05:05] LABS: BASOPHILS # (AUTO) 0.01 x10^3/uL (0-0.1); BASOPHILS % (AUTO) 0 % (0-1); EOSINOPHILS # (AUTO) 0.01 x10^3/uL (0-0.4); EOSINOPHILS % (AUTO) 0 % (1-7); LYMPHOCYTES # (AUTO) 0.56 x10^3/uL (1-3.4); LYMPHOCYTES % (AUTO) 7 % (22-44); MD SCAN; MONOCYTES % (AUTO) 3 % (2-9); NEUTROPHILS # (AUTO) 7.16 x10^3/uL (1.8-6.8); NEUTROPHILS % (AUTO) 90 % (42-75)
[2019-05-19] MEDS: ASPIRIN 81 MG TABLET EC PO SCH (07:03)
[2019-05-19] MEDS: HEPARIN 25,000 UNITS/500ML PMX 500 ML IV PRN (08:07)
[2019-05-19] MEDS: FAMOTIDINE 20 MG/2 ML IVPush SCH (09:11)
[2019-05-19] MEDS: CARVEDILOL 3.125 MG TABLET PO SCH ×2 (09:12→21:09)
[2019-05-19] MEDS: AMIODARONE 200 MG TABLET PO SCH ×2 (09:12→21:09)
[2019-05-19] MEDS: SODIUM CHLORIDE FLUSH 10ML SYR IVF SCH ×2 (09:12→21:08)
[2019-05-19] MEDS: AMPICILLIN/SULBACTAM 3 GM in SODIUM CHLORIDE 0.9% 100 ML IV SCH ×2 (09:13→20:10)
[2019-05-19] MEDS ORDERED: FUROSEMIDE 20 MG/2 ML IV ONE (11:30)
[2019-05-19] MEDS: FUROSEMIDE 100 MG in SODIUM CHLORIDE 0.9% 90 ML IV SCH ×2 (12:01→18:28)
[2019-05-19] MEDS: NICOTINE 14MG/24 HR PATCH.TD24 TD SCH (13:00)
[2019-05-19 13:29] LABS: CHLORIDE,URINE RANDOM 93 mmol/L; POTASSIUM,URINE RANDOM 23 mmol/L; SODIUM,URINE RANDOM 81 mmol/L
[2019-05-19 13:41] LABS: OSMOLALITY,URINE 275 mOsm/kg (500-850)
[2019-05-19 13:48] LABS: MICROSCOPIC INDICATED
[2019-05-19] MEDS ORDERED: CALCIUM CHLORIDE 13.6 MEQ in SODIUM CHLORIDE 0.9% 100 ML IV ONE (16:00)
[2019-05-20] MEDS: DOBUTAMINE 500 MG in DEXTROSE 5% 210 ML IV SCH ×5 (00:21→19:50)
[2019-05-20] MEDS: VASOPRESSIN 100 UNIT in SODIUM CHLORIDE 0.9% 495 ML IV PRN (00:23)
[2019-05-20] MEDS: PROPOFOL 100 ML IV PRN ×3 (02:37→18:18)
[2019-05-20] MEDS: ALBUTEROL/IPRATROPIUM 2.5MG/0.5MG, 3 ML INLINE SCH ×6 (02:45→22:13)
[2019-05-20] MEDS: NOREPINEPHRINE 8 MG in SODIUM CHLORIDE 0.9% 242 ML IV PRN ×4 (04:17→19:51)
[2019-05-20 04:35] LABS: BASOPHILS % (AUTO) 0 % (0-1); EOSINOPHILS # (AUTO) 0.01 x10^3/uL (0-0.4); EOSINOPHILS % (AUTO) 0 % (1-7); LYMPHOCYTES # (AUTO) 0.45 x10^3/uL (1-3.4); LYMPHOCYTES % (AUTO) 7 % (22-44); MD NO; MEAN CORPUSCULAR HGB CONC 32.9 g/dL (32.4-35.8); MEAN CORPUSCULAR VOLUME 88.3 fL (80-100); MEAN PLATELET VOLUME 9.9 fL (7.4-10.4); MONOCYTES # (AUTO) 0.26 x10^3/uL (0.2-0.8); MONOCYTES % (AUTO) 4 % (2-9); NEUTROPHILS # (AUTO) 5.74 x10^3/uL (1.8-6.8); NEUTROPHILS % (AUTO) 89 % (42-75); PLATELET COUNT 164 x10^3/uL (130-400); RED BLOOD COUNT 3.26 x10^6/uL (3.82-5.3); RED CELL DISTRIBUTION WIDTH 15.6 % (9.6-15.2)
[2019-05-20 04:45] LABS: ALBUMIN 1.9 g/dL (3.4-5.0); ANION GAP 11 mmol/L (5-15); CALCIUM 6.6 mg/dL (8.5-10.1); CHLORIDE 90 mmol/L (98-107)
[2019-05-20 04:50] LABS: ALANINE AMINOTRANSFERASE 521 U/L (12-78); ALKALINE PHOSPHATASE 143 U/L (45-117); CREATINE KINASE, TOTAL 95 U/L (26-192); CREATININE 3.51 mg/dL (0.55-1.02); TOTAL PROTEIN 5.1 g/dL (6.4-8.2)
[2019-05-20] MEDS: ASPIRIN 81 MG TABLET EC PO SCH (05:42)
[2019-05-20] MEDS: FUROSEMIDE 100 MG in SODIUM CHLORIDE 0.9% 90 ML IV SCH ×2 (05:49→16:04)
[2019-05-20] MEDS ORDERED: MAGNESIUM SULFATE PMX 2GM/50ML 50 ML IV ONE ×2 (07:00→10:30)
[2019-05-20] MEDS ORDERED: OXYMETAZOLINE NASAL SPRAY 0.05%, 15ML NAS ONE (08:30)
[2019-05-20] MEDS ORDERED: CALCIUM CHLORIDE 13.6 MEQ in SODIUM CHLORIDE 0.9% 100 ML IV ONE (08:30)
[2019-05-20] MEDS: CARVEDILOL 3.125 MG TABLET PO SCH ×2 (08:45→20:23)
[2019-05-20] MEDS: AMIODARONE 200 MG TABLET PO SCH (08:48)
[2019-05-20] MEDS: FAMOTIDINE 20 MG/2 ML IVPush SCH (08:50)
[2019-05-20] MEDS: AMPICILLIN/SULBACTAM 3 GM in SODIUM CHLORIDE 0.9% 100 ML IV SCH ×2 (08:50→19:53)
[2019-05-20] MEDS: SODIUM CHLORIDE FLUSH 10ML SYR IVF SCH ×2 (08:50→20:22)
[2019-05-20] MEDS ORDERED: FUROSEMIDE 40 MG/4 ML IV ONE (10:30)
[2019-05-20] MEDS ORDERED: IRON SUCROSE COMPLEX 100MG/5ML IV SCH (10:30)
[2019-05-20] MEDS: ALBUMIN HUMAN 25% 100 ML IV SCH ×2 (13:08→20:23)
[2019-05-20] MEDS: HEPARIN 25,000 UNITS/500ML PMX 500 ML IV PRN (14:22)
[2019-05-20] MEDS: PHENYLEPHRINE 80 MG in SODIUM CHLORIDE 0.9% 242 ML IV SCH (15:08)
[2019-05-21] MEDS: PROPOFOL 100 ML IV PRN (00:15)
[2019-05-21] MEDS: NOREPINEPHRINE 8 MG in SODIUM CHLORIDE 0.9% 242 ML IV PRN ×2 (00:51→06:02)
[2019-05-21] MEDS: FUROSEMIDE 100 MG in SODIUM CHLORIDE 0.9% 90 ML IV SCH ×2 (00:53→04:31)
[2019-05-21] MEDS: ALBUTEROL/IPRATROPIUM 2.5MG/0.5MG, 3 ML INLINE SCH (02:42)
[2019-05-21] MEDS: PHENYLEPHRINE 80 MG in SODIUM CHLORIDE 0.9% 242 ML IV SCH (05:23)
[2019-05-21] MEDS: ALBUMIN HUMAN 25% 100 ML IV SCH (05:30)
[2019-05-21] MEDS: ASPIRIN 81 MG TABLET EC PO SCH (05:30)
[2019-05-21] MEDS: DOBUTAMINE 500 MG in DEXTROSE 5% 210 ML IV SCH (06:02)
[2019-05-21 06:40] LABS: ALANINE AMINOTRANSFERASE 173 U/L (12-78); ALBUMIN 1.9 g/dL (3.4-5.0); ANION GAP 17 mmol/L (5-15); CHLORIDE 90 mmol/L (98-107); CREATININE 4.03 mg/dL (0.55-1.02)
[2019-05-21 06:43] LABS: MEAN CORPUSCULAR HEMOGLOBIN 29.6 pg (27.0-34.8); MEAN CORPUSCULAR HGB CONC 33.6 g/dL (32.4-35.8); MEAN CORPUSCULAR VOLUME 88.2 fL (80-100); RED BLOOD COUNT 0.88 x10^6/uL (3.82-5.3); RED CELL DISTRIBUTION WIDTH 15.7 % (9.6-15.2)
[2019-05-21 06:51] LABS: ALKALINE PHOSPHATASE 68 U/L (45-117); TOTAL PROTEIN 3.5 g/dL (6.4-8.2)
[2019-05-21 06:52] LABS: CALCIUM 5.8 mg/dL (8.5-10.1)
[2019-05-21 07:11] LABS: MD YES
[2019-05-21 07:12] LABS: MEAN PLATELET VOLUME 9.9 fL (7.4-10.4); PLATELET COUNT 77 x10^3/uL (130-400)
[2019-05-21 07:43] LABS: BANDS%(MANUAL) 18 % (0-7); LYMPHS% (MANUAL) 8 % (22-44); NRBC % (MANUAL) 6 % (0-1); SEGS% (MANUAL) 74 % (42-75)
[2019-05-21 07:46] LABS: <PLATELET ESTIMATE> DECREASED; <PLT MORPHOLOGY> NORMAL PLT MORPH; ANISOCYTOSIS 2+; ECHINOCYTES 1+; HYPOCHROMIA 1+; MICROCYTOSIS 1+; OVALOCYTES 1+; SCHISTOCYTES 1+
[2019-05-21 07:47] LABS: TOXIC GRAN 1+
== END 2019-05-21 06:36 | disposition expired ==
LOC: ED 12:34 → EDIP 12:50 → 5SO 14:47 → CCU 05-16 01:00
PROVIDERS: ADMIT Hospitalist; ATTEND Internal Medicine
PROC: 0BH17EZ Insertion of Endotracheal Airway into Trachea, Via Natural or Artificial Opening (ICD-10-PCS; principal; 2019-05-16)
PROC: 5A1945Z Respiratory Ventilation, 24-96 Consecutive Hours (ICD-10-PCS; 2019-05-16)
PROC: 02HV33Z Insertion of Infusion Device into Superior Vena Cava, Percutaneous Approach (ICD-10-PCS; 2019-05-16)
PROC: B548ZZA Ultrasonography of Superior Vena Cava, Guidance (ICD-10-PCS; 2019-05-16)
PROC: 03HY32Z Insertion of Monitoring Device into Upper Artery, Percutaneous Approach (ICD-10-PCS; 2019-05-16)
PROC: 4A133B1 Monitoring of Arterial Pressure, Peripheral, Percutaneous Approach (ICD-10-PCS; 2019-05-16)
PROC: 4A133J1 Monitoring of Arterial Pulse, Peripheral, Percutaneous Approach (ICD-10-PCS; 2019-05-16)
PROC: 5A12012 Performance of Cardiac Output, Single, Manual (ICD-10-PCS; 2019-05-16)
PROC: 5A2204Z Restoration of Cardiac Rhythm, Single (ICD-10-PCS; 2019-05-16)
PROC: 0T9B70Z Drainage of Bladder with Drainage Device, Via Natural or Artificial Opening (ICD-10-PCS; 2019-05-17)
DX: I21.4 Non-ST elevation (NSTEMI) myocardial infarction (principal); I50.23 Acute on chronic systolic (congestive) heart failure; J69.0 Pneumonitis due to inhalation of food and vomit; J96.01 Acute respiratory failure with hypoxia; K72.00 Acute and subacute hepatic failure without coma; N17.0 Acute kidney failure with tubular necrosis; B17.9 Acute viral hepatitis, unspecified; E87.1 Hypo-osmolality and hyponatremia; E87.2 Acidosis; I42.9 Cardiomyopathy, unspecified; J44.1 Chronic obstructive pulmonary disease with (acute) exacerbation; I13.0 Hypertensive heart and chronic kidney disease with heart failure and stage 1 through stage 4 chronic kidney disease, or unspecified chronic kidney disease; Z99.11 Dependence on respirator [ventilator] status; I46.9 Cardiac arrest, cause unspecified; Z66 Do not resuscitate; D64.9 Anemia, unspecified; E83.51 Hypocalcemia; F15.10 Other stimulant abuse, uncomplicated; F17.210 Nicotine dependence, cigarettes, uncomplicated; G89.29 Other chronic pain; I08.1 Rheumatic disorders of both mitral and tricuspid valves; I44.7 Left bundle-branch block, unspecified; J06.9 Acute upper respiratory infection, unspecified; M19.90 Unspecified osteoarthritis, unspecified site; N18.9 Chronic kidney disease, unspecified; R13.10 Dysphagia, unspecified; M32.9 Systemic lupus erythematosus, unspecified; Z82.49 Family history of ischemic heart disease and other diseases of the circulatory system; Z91.14 Patient's other noncompliance with medication regimen; Z87.01 Personal history of pneumonia (recurrent)
CPT/HCPCS: 36415; 36600; 87400; 96374; 99291; J3490; J7613; J7620; 71045; 71046; 71275; 76700; 80048; 80053; 80061; 80076; 80307; 81001; 82040; 82306; 82330; 82436; 82533; 82550; 82570; 82728; 82803; 83540; 83550; 83605; 83735; 83880; 83935; 83970; 84100; 84133; 84300; 84443; 84478; 84484; 84550; 85025; 85379; 85520; 87040; 87070; 87081; 87086; 87205; 92950; 93005; 93306; 93308; 94002; 94003; 94640; C1760; G0378; J0171; J0295; J0456; J1644; J1756; J1940; J2250; J2704; J3480; J7060; J7070; P9047; Q9967; J0282; J0330; J1250; J2060; J2270; J2370; J3475; J7030; J7040; J7050